=== PATIENT | female | born 1975 | race African-American/Black ===

== ENCOUNTER 2019-04-17 14:17 | Outpatient (REF) | payer MEDICAID, SELFPAY ==
--- NOTE | 2019-04-17 13:20 | PAPFT_PTH ---
PATIENT: Nadine Figueroa LOC: [facility] U#:[id number] AGE/SX: 43/F ROOM: RE04/17/[address]: Ivy Jackson : 1975 BED: DIS: 04/17/2019 SPEC #: [id number] RECD: 04/17/19 16:50 STATUS: RAPHAELSara REQ #: [id number] YOSEF: 04/17/19 13:[address]: Ivy Jackson DEPT: [facility] Cytology RECD BY: Mary Beckman ENTERED: 04/17/19 16:51 SP TYPE: PAPFT OTHR DR: Tawny Torres Tissues: 1 - CX/ENDOCX FOR PAP SMEARS Procedures: PAP THIN PREP/UVM Screening HPV DNA PROBE Comments: [id number]
== END 2019-04-17 14:37 ==
LOC: LBN 14:17
PROVIDERS: PCP Family Medicine; Visit Provider Obstetrics & Gynecology Gynecology
DX: Z12.4 Encounter for screening for malignant neoplasm of cervix (principal); Z11.51 Encounter for screening for human papillomavirus (HPV)
CPT/HCPCS: 88142; 87624

== ENCOUNTER 2019-11-04 13:01 | Emergency (ER) | payer MEDICAID, SELFPAY ==
[2019-11-04 13:07] VITALS: BP 174/95; PULSE 96; RESP 18; TEMP 36.7; O2SAT 100
--- NOTE | 2019-11-04 13:43 | ED.GENADUL_ITS ---
Discharge Plan Disposition Patient Disposition: HOME Condition: Stable Discharge Details Chief Complaint: RespSymp Clinical Impression: URI (upper respiratory infection) Primary Care Provider: Tawny Torres ED Provider: Letitia Gar Home Meds and New Rx's Prescriptions: Continued sertraline 100 mg tablet 100 mg PO DAILY Qty: 90 RF: 4 khfdcllawe-bbnjzse-ehodibze [Fiorinal] 50-325-40 mg capsule 1 cap PO QID PRN (Reason: pain) Qty: 60 RF: 2 ibuprofen 600 mg tablet 600 mg PO QID PRN (Reason: pain) Qty: 60 RF: 3 Mirena 20 mcg/24 hours (5 yrs) 52 mg intrauterine device 1 device IY ONCE Qty: 1 RF: 0 Flovent Diskus 50 MCG blister with device 2 puff Inhalation BID RF: 0 albuterol sulfate 0.63 MG/3 ML solution for nebulization 0.63 mg Inhalation PRN RF: 0 Discharge Instructions Instructions: Upper Respiratory Infection (ED) Additional Instructions: Please return immediately to the emergency department if you develop any new or worsening symptoms, if your condition does not improve as expected, or if you become otherwise concerned. It is extremely important that you call soon as possible to make an appointment to be seen in follow-up for this visit by your primary care doctor. Referrals: Tawny Torres MD [Primary Care Provider] - Medical Decision Making Nadine Figueroa is a 43-year-old woman with a history of asthma who presented to the emergency department with nasal congestion, sneezing, cough, loose stools with symptoms beginning yesterday morning, patient concerned that she has the flu. On exam patient is very well and nontoxic appearing. Benign exam of the oropharynx, benign cardiopulmonary exam. Concern for viral respiratory illness. Plan for influenza swab. No further diagnostics/treatment indicated at this time, exam/history is not consistent with sepsis, pneumonia, acute asthma exacerbation, meningitis, significant metabolic/lyte derangement, other acute emergent process. Flu swab negative. Patient continues to be very well-appearing. Patient requesting discharged home. I had a lengthy discussion with Patient regarding return to emergency department precautions, home care, and importance of outpatient follow-up. Pt verbalizes understanding of the plan and is amenable. Patient discharged to home with clear plan for outpatient follow-up. All questions were answered. Disposition decision was made weighing the risks and benefits of hospitalization versus outpatient treatment, the risk for further decompensation, and the patient's wishes. Medical Records Medical records reviewed: Yes I reviewed the patient's medical records. Lab Data Lab results reviewed: Yes I reviewed the patient's lab results. Labs: 11/04/19 13:20 Nasopharynx Influenza Types A,B Antigen - Final HPI General Mode of arrival: ambulatory . Date/Time Provider Initiated Documentation: 11/04/19 13:18 . Limitations to Documentation: no limitations . Information obtained by: patient, RN notes reviewed and old records reviewed . HPI Narrative: Nadine Figueroa is a 43-year-old woman with a history of asthma presenting to the emergency department with nasal congestion, body aches. Patient reports that she woke yesterday morning feeling as if I had the flu. Patient reports that she woke up with persistent sneezing yesterday morning, and then developed nasal congestion. Patient reports that she had a hard time sleeping last night because she could not breathe out of her nose. Patient reports that her nasal congestion has continued into today. She also reports that she developed a dry cough this morning. She states that she has had generalized body aches since onset of symptoms yesterday morning, but denies any focal pain. She has had subjective fevers and soft stools since yesterday morning. She denies vomiting, shortness of breath, numbness, weakness, rash. She states that she has been eating and drinking as usual. No recent travel. She reports that she smokes a half a pack of cigarettes per day. She states that she has not had to use her rescue inhaler since symptoms began. Patient reports that she came to the emergency department to make sure that she did not have influenza, as she cares for 1-year-old baby. Related Data Home Medications Medication Instructions Recorded Confirmed Flovent Diskus 2 puff INHALATION BID disk 11/26/13 11/04/19 albuterol sulfate 0.63 mg INHALATION PRN 11/26/13 11/04/19 sertraline 100 mg tablet 100 mg PO DAILY #90 tab 04/17/19 11/04/19 xglqdqkykg-cdtarfg-bxznnvfh 50 1 cap PO QID PRN #60 cap 08/20/19 11/04/19 mg-325 mg-40 mg capsule ibuprofen 600 mg tablet 600 mg PO QID PRN #60 tab 08/20/19 11/04/19 levonorgestrel 20 mcg/24 hours (5 1 device IY ONCE #1 each 08/20/19 11/04/19 yrs) 52 mg intrauterine device Previous Rx's Medication Instructions Recorded sertraline 100 mg tablet 100 mg PO DAILY #90 tab 04/17/19 cqzvqucvww-lsbscmr-fueikfyp 50 1 cap PO QID PRN #60 cap 08/20/19 mg-325 mg-40 mg capsule ibuprofen 600 mg tablet 600 mg PO QID PRN #60 tab 08/20/19 levonorgestrel 20 mcg/24 hours (5 1 device IY ONCE #1 each 08/20/19 yrs) 52 mg intrauterine device Allergies Allergy/AdvReac Type Severity Reaction Status Date / Time penicillin V Allergy Severe Other (See Unverified 11/04/19 13:11 Comment) General Stated Complaint: RespSymp CHRISTEN: 3 Review of Systems Narrative: Constitutional: Reports subjective fevers Eyes: denies eye pain ENT: denies ear pain, dental pain, sore throat, reports nasal congestion Cardiovascular: denies chest pain Respiratory: denies SOB, reports cough GI: denies abdominal pain, vomiting, diarrhea : denies flank pain MSK: denies back pain, neck pain, reports generalized arthralgias/myalgias Skin: denies rash Neuro: denies headaches, numbness, weakness [facility] Medical History Abnormal Pap smear of cervix 2013 ASCUS + HR HPV. colpo bx were nl. 2016 Nl pap. + HPV. Colpo recommended Dysmenorrhea 2013. Rx with Mirena IUD. IUD (intrauterine device) in place (Acute) PMDD (premenstrual dysphoric disorder) 02/2015 Sertraline daily. 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 Social History (Updated 11/04/19 @ 13:50 by Letitia Gar MD) Smoking/Tobacco Use Status: Current every day Tobacco Type: cigarettes Smoking packs per day: 1 Smoking cigarettes per day: 20.0 Tobacco: How many years used: 20 Quit status: considering quitting Alcohol Intake: never Drug use: Occasionally Substance use type: marijuana Household members: spouse, children and other Details: spouse - Bessy. Had ME 2017 Number of Children: 2 Do you think of yourself as: bisexual Current gender identity: female What is your relationship status?: living with partner Panel score (0-1 are the most socially isolated patients): 1 Seatbelt use: always Do you feel safe at home: Yes Do you feel safe in your relationship?: Yes History History 2 Para Hx # Term Pregnancies 2 Multiple births Hx # Pregnancies Ectopic pregnancies AB induced Hx Number of Living Children AB spontaneous Exam Narrative Exam Narrative: Constitutional: well and kny-zhoyu-zulpdmhll, pleasant, conversing normally, no coughing or sneezing during encounter HENT: head atraumatic/normocephalic/normal inspection, mucous membranes moist, normal posterior pharynx, no intraoral lesion Eyes: conjunctiva normal, sclera normal, pupils 3mm b/l Neck: no stridor, normal ROM, trachea midline Chest: normal inspection Resp: normal work of breathing, LCTAB Cardio: normal rate, normal rhythm, no murmur appreciated Skin: warm, dry, normal color, no rash Neuro: alert, not altered, grossly non-focal, normal tone Ext: Moving all extremities equally Psych: normal mood, normal affect, normal behavior Course Vital Signs Vital signs: Vital Signs Temperature 36.7 C 11/04/19 13:07 Pulse 96 H 11/04/19 13:07 Respiratory Rate 18 11/04/19 13:07 Blood Pressure 174/95 H 11/04/19 13:07 Pulse Oximetry 100 11/04/19 13:07 Temperature 36.7 C 11/04/19 13:07 Temperature Source Temporal Artery Scan 11/04/19 13:07 Pulse 96 H 11/04/19 13:07 Respiratory Rate 18 11/04/19 13:07 Respiratory Effort Non-Labored 11/04/19 13:13 Blood Pressure 174/95 H 11/04/19 13:07 Blood Pressure Position Sitting 11/04/19 13:07 Pulse Oximetry 100 11/04/19 13:07 Oxygen Delivery Method Room Air 11/04/19 13:07 Oxygen Flow Rate 0 11/04/19 13:07 Pain Level 10 11/04/19 13:07 Lab/Test Results Lab/Test Results: 11/04/19 13:20 Nasopharynx Influenza Types A,B Antigen - Final
[2019-11-04 14:03] VITALS: BP 174/95; PULSE 96; RESP 18; TEMP 36.7; O2SAT 100
== END 2019-11-04 14:04 | disposition home or self-care (01) ==
PROVIDERS: Emergency Provider Student in an Organized Health Care Education/Training Program; PCP Family Medicine
DX: J06.9 Acute upper respiratory infection, unspecified (principal); M79.10 Myalgia, unspecified site; R50.9 Fever, unspecified; F17.210 Nicotine dependence, cigarettes, uncomplicated; J45.909 Unspecified asthma, uncomplicated
CPT/HCPCS: 87449; 99282

== ENCOUNTER 2024-07-12 12:33 | Outpatient (REF) | payer MEDICAID, SELFPAY ==
--- NOTE | 2024-07-12 11:30 | PAPFT_PTH ---
PATIENT: Nadine Figueroa LOC: [facility] U#:[id number] AGE/SX: 48/F ROOM: RE07/12/[address]: Ivy Jackson : 1975 BED: DIS: 07/12/2024 SPEC #: [id number] RECD: 07/12/24 12:44 STATUS: YEHUDA REQ #: [id number] YOSEF: 07/12/24 11:[address]: Ivy Jackson [facility]PT[facility] Cytology RECD BY: Mary Beckman ENTERED: 07/12/24 12:44 SP TYPE: PAPFT OTHR DR: Tawny Torres Tissues: 1 - CX/ENDOCX FOR PAP SMEARS Procedures: PAP THIN PREP/UVM Screening HPV DNA PROBE Comments: [id number] (HPV 16 & 18/45)
== END 2024-07-12 12:34 | disposition home or self-care (01) ==
LOC: LBN 12:33
PROVIDERS: PCP Family Medicine; Visit Provider Obstetrics & Gynecology Gynecology
DX: Z12.4 Encounter for screening for malignant neoplasm of cervix (principal); R87.612 Low grade squamous intraepithelial lesion on cytologic smear of cervix (LGSIL)
CPT/HCPCS: 88142; 87624

== ENCOUNTER 2024-07-15 01:20 | Outpatient (CLI) | payer MEDICAID, SELFPAY ==
--- NOTE | 2024-07-15 14:22 | DI.MAMMO_ITS ---
Exam(s) MAMMO DIAGNOSTIC BI EXAM: MAMMO DIAGNOSTIC BI CLINICAL HISTORY: L breast mass,n63.20. TECHNIQUE: Bilateral CC and MLO mammographic images were obtained with 3D tomosynthesis technique an d utilizing computer aided detection (CAD). Also performed 3 additional views of the right breast because of finding of a microcalcification in t he right breast. These were 2D spot Mag compression views as well as a 3D straight lateral view COMPARISON: None. This is a baseline mammogram. Patient feels lump in her left breast 4 a few year s following breast-feeding for this lump is at approximately 9 o'clock position of the left breast. FINDINGS: At the 9 o'clock position of the left breast there is a lobulated partially calcified nodule correspo nding to her palpable finding measuring approximately 3.4 by 2 cm. Ultrasound required. No other significant focal left breast findings. In the right breast there are few small nodular densities noted. One of these measures approximately 4 mm and is located 12 cm in from the nipple on the MLO view. Another measures approximately 6 x 4 mm on the MLO view and is located 10 cm in from the nipple on the MLO view. In addition, there is a solitary microcalcification group in the right breast located 9.5 cm in from the nipple on the MLO view. On the 3D imaging there is a subtle suggestion that this microcalcificat ion group may be associated with a nodule. There is no significant architectural distortion or skin thickening-retraction. IMPRESSION: 1. This patient's palpable finding in the left breast corresponds to a partially calcified 3.4 x 2.0 cm nodule on the mammogram which requires further imaging with ultrasound. Patient was apparently no t able to stay for her scheduled ultrasound examination today. 2. Multiple findings in the right breast including small nodules as well as a significant microcalci fication group. The next step for the right breast is also to undergo ultrasound examination with th is to determine solid versus cystic and to determine if the microcalcification group is indeed associ ated with a nodule. This right breast microcalcification group may require stereotactic biopsy. 3. Please ensure that this patient is scheduled for bilateral complete breast ultrasound as soon as possible. She apparently did not stay for her already scheduled breast ultrasound examination which was supposed to have occurred immediately following today's mammogram. BI-RADS Category 0 - Incomplete: Need additional imaging evaluation Breast Density - Category B - Scattered areas of fibroglandular density Breast density Category C or D implies that the patient has dense breast tissue. Dense breast tissue can make it harder to find cancer on a mammogram. Dense breast tissue is also associated with an incr eased risk of breast cancer. This information about the result of the mammogram report was provided to the patient to raise their awareness. Use this report when you speak with the patient about their risks for breast cancer, which includes their family history. At that time, you may recommend additional screening tests (Ultrasoun d or MRI) as these tests may add significant information. A negative radiographic report should not delay biopsy if a dominant or clinically suspicious mass is present. Up to ten percent of cancers are not identified on mammography. A negative report may reinforce clinical impression. Adenosis and dense breasts may obscure an underlying neoplasm. False positive reports average 6 to 10%. Patient will receive a letter notifying them of these results.
== END 2024-07-15 01:40 ==
LOC: DI 01:21
PROVIDERS: PCP Family Medicine; Visit Provider Obstetrics & Gynecology Gynecology
DX: N63.21 Unspecified lump in the left breast, upper outer quadrant (principal); Z12.31 Encounter for screening mammogram for malignant neoplasm of breast
CPT/HCPCS: 77062; 77066; G0279

== ENCOUNTER 2024-07-16 02:32 | Outpatient (CLI) | payer MEDICAID, SELFPAY ==
--- NOTE | 2024-07-16 | DI.US_ITS ---
Exam(s) US BREAST LT COMPLETE MG MAMMO SCREEN CALL BACK UNI US BREAST RT COMPLETE EXAM: US BREAST BILATERAL COMPLETE CLINICAL HISTORY: F/U MAMMO, LT BREAST NODULE,r92.8. TECHNIQUE: Complete ultrasound of BOTH BREASTS was performed including all 4 quadrants, the retroare olar regions, and both axillary regions. During today's study cutaneous Beakley spot was placed over a finding at the 7 o'clock position of th e right breast and immediately thereafter the right breast was remember gram for correlative purposes . Findings are as follows.... COMPARISON: Yesterday's baseline mammogram was reviewed. This 49-year-old patient has a palpable fi nding at the 9 o'clock position of her left breast which has been unchanged x 30 years. At 19 years old she was seen for this problem and was informed that it was a fibroadenoma (although apparently no imaging was performed at nor since that time). This patient was not able to stay 4 ultrasound examination following yesterday's baseline mammogram. FINDINGS: LEFT BREAST ULTRASOUND: The dominant finding is at the 8-9 o'clock position and is a well-defined lobulated partially calcifi ed nodule measuring approximately 2.7 by 1.5 cm, exhibiting predominantly neutral through transmissio n. And corresponding to the plainly visible partially calcified nodule on yesterday's mammogram. It is probably a fibroadenoma given its ultrasound appearance and history of being unchanged in size ti mes 30 years. Other ultrasound findings in left breast include 2 adjacent superficial findings at the retroareolar 1 o'clock position, 1 of which appears to be a 4 by 2 millimeter cyst and the other a 6 x 3 millimete r either hemorrhagic cyst or sebaceous cyst. At the 4 o'clock position there is a simple microcyst measuring 6 x 5 mm. Scanning of the left axilla is negative for adenopathy. RIGHT BREAST ULTRASOUND: There is a solitary finding which is at the 7 o'clock position. This is a wider than taller slightly lobulated noncalcified nodule measuring 7 x 4 mm, exhibiting neutral through transmission. There ar e no other focal ultrasound findings in all 4 quadrants of the right breast. Scanning of the right a xilla is negative for adenopathy. At this point a cutaneous Beakley spot was placed over the above described ultrasound finding at the 7 o'clock of the right breast and the patient was brought to the moderately suite for repeat CC and M LO views to determine if this ultrasound visible nodule correlates with the solitary mammographically visible microcalcification group in the right breast. RIGHT BREAST DIAGNOSTIC MAMMOGRAM: Review of these new cc and MLO mammographic views of the right breast does not reveal correlation bet ween the cutaneous marker and the microcalcification group, and thus we are most probably dealing wit h 2 separate issues in the right breast. IMPRESSION: 1. 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 Other findings in left breast as see n on ultrasound above can be followed conservatively. 2. Right breast 7 o'clock position slightly lobulated subtle nodule seen on ultrasound may be a smal l noncalcified fibroadenoma. There is also possibly that this is just an asymmetric island of fibrog landular tissue. This can be followed with repeat breast ultrasound as described below. 3. With respect to the right breast microcalcification group (keeping in mind that there are no prev ious mammograms for comparison), I feel this should undergo stereotactic biopsy at this time. Findings and recommendations discussed by myself with the patient today. Findings are recommendations also called by myself to Dr. Jackson today BI-RADS Category 4 - Suspicious Abnormality: Biopsy should be considered Breast Density - Category B - Scattered areas of fibroglandular density Breast density Category C or D implies that the patient has dense breast tissue. Dense breast tissue can make it harder to find cancer on a mammogram. Dense breast tissue is also associated with an incr eased risk of breast cancer. This information about the result of the mammogram report was provided to the patient to raise their awareness. Use this report when you speak with the patient about their risks for breast cancer, which includes their family history. At that time, you may recommend additional screening tests (Ultrasoun d or MRI) as these tests may add significant information. A negative radiographic report should not delay biopsy if a dominant or clinically suspicious mass is present. Up to ten percent of cancers are not identified on mammography. A negative report may reinforce clinical impression. Adenosis and dense breasts may obscure an underlying neoplasm. False positive reports average 6 to 10%. Patient will receive a letter notifying them of these results.
== END 2024-07-16 02:52 ==
LOC: DI 02:32
PROVIDERS: PCP Family Medicine; Visit Provider Obstetrics & Gynecology Gynecology
DX: Z12.31 Encounter for screening mammogram for malignant neoplasm of breast (principal); R92.8 Other abnormal and inconclusive findings on diagnostic imaging of breast
CPT/HCPCS: 76642; 77063; 77067

== ENCOUNTER 2024-07-16 03:07 | Outpatient (CLI) | payer MEDICAID, SELFPAY ==
[2024-07-16 12:18] LABS: HCT 38.8 % (36.0-46.0); HGB 12.6 g/dL (11.2-15.7); MCH 30.6 pg (27.0-33.0); MCHC 32.5 % (32.0-36.0); MCV 94 fL (80-95); MPV 8.7 fL (8.0-11.0); Platelet Count 419 10^3/uL (130-400); RBC 4.12 10^6/uL (3.93-5.22); RDW 12.9 % (11.7-14.6)
[2024-07-16 12:51] LABS: ALT 26 U/L (14-59); AST 22 U/L (15-37); Albumin 4.1 g/dL (3.4-5.0); Alkaline Phosphatase 109 U/L (46-116); BUN 7 mg/dL (7-18); Bilirubin, Total 0.41 mg/dL (0.2-1.0); Calcium 9.4 mg/dL (8.5-10.1); Calculated LDL 95 mg/dL (<100); Chloride 104 mmol/L (98-107); Cholesterol 173 mg/dL (<200); Estimated GFR 70.36 (mL/min/1.73m2); Glucose 111 mg/dL (74-106); HDL Cholesterol 58 mg/dL (40-60); Potassium 3.8 mmol/L (3.5-5.1); Sodium 141 mmol/L (136-145); TSH (W/Ref FT4) 1.33 uIU/mL (0.36-3.74); Total Protein 8.2 g/dL (6.4-8.2); Triglyceride 103 mg/dL (<150)
[2024-07-16 12:57] LABS: Hemoglobin A1C 5.5 % (<5.7)
== END 2024-07-16 03:08 | disposition home or self-care (01) ==
LOC: LBO 03:07
PROVIDERS: PCP Family Medicine; Visit Provider Obstetrics & Gynecology Gynecology
DX: R63.5 Abnormal weight gain (principal); R53.83 Other fatigue; N63.20 Unspecified lump in the left breast, unspecified quadrant
CPT/HCPCS: 36415; 80053; 80061; 85027; 83036; 84443